=== PATIENT | male | born 1995 | race Hispanic/Latino ===

== ENCOUNTER 2017-09-01 22:22 | Emergency (ER) | payer OTHER, SELFPAY ==
[2017-09-01] MEDS ORDERED: Ibuprofen 200 MG TAB ONE (22:58)
[2017-09-01] MEDS ORDERED: Acetaminophen 500 MG TAB ONE (23:45)
[2017-09-01 23:59] LABS: Bilirubin Negative (Negative); Blood, Urine Negative (Negative); Clarity CLEAR (Clear); Glucose, Urine (Dipstick) Negative (Negative); Leukocyte Negative (Negative); Nitrite Negative (Negative); Protein, Urine (Dipstick) Negative (Neg-Trace); Specific Gravity, Urine 1.019 (1.002-1.036); pH, Urine 6.5 (5.0-9.0)
[2017-09-02] MEDS ORDERED: diphenhydrAMINE 50 MG/ML VIAL ONE (00:02)
[2017-09-02] MEDS ORDERED: Metoclopramide HCl 10 MG/2 ML VIAL ONE (00:02)
[2017-09-02 00:11] LABS: #Eosinphils 0.1 thou/uL (0.0-0.7); #Lymphocytes 0.7 thou/uL (1.20-3.40); #Monocytes 0.7 thou/uL (0.11-0.59); #Neutrophils 3.9 thou/uL (1.40-6.50); %Basophils 0.3 % (0.0-1.0); %Eosinophils 2.2 % (0.0-10.0); %Lymphocytes 13.6 % (28.0-48.0); %Monocytes 12.6 % (0.0-4.0); %Neutrophils 71.4 % (31.0-61.0); Hemoglobin 14.3 g/dL (14.0-18.0); Mean Corpuscular HGB CONC 33.2 g/dL (32.0-36.0); Mean Corpuscular Hemoglobin 31.1 pg (25.0-35.0); Mean Corpuscular Volume 93.8 fl (77.0-87.0); Mean Platelet Volume 9.2 fL (7.4-10.4); Platelet Count 178 thou/uL (130-400); RBC Distribution Width 10.7 % (11.5-14.5); Red Blood Cell (RBC) Count 4.61 mill/uL (4.00-5.20); White Blood Cell (WBC) Count 5.4 thou/uL (4.8-10.8)
--- NOTE | 2017-09-02 00:22 | RAD ---
CHEST TWO VIEWS: 09/01/17 HISTORY: Fever. Bodyaches. COMPARISON: None. FINDINGS: Normal cardiac silhouette. The lungs and pleural spaces are clear. No pneumothorax or osseous abnorma lity. IMPRESSION: No acute cardiopulmonary process. POS: H
[2017-09-02 00:26] LABS: ALT (SGPT) 17 U/L (8-55); AST (SGOT) 20 U/L (10-45); Albumin 4.2 g/dL (3.5-5.0); Alkaline Phosphatase 92 U/L (Less than 750); Anion Gap 12 mmol/L (10-20); BUN (Urea Nitrogen) 17 mg/dL (8.4-21.0); Bilirubin, Total 0.2 mg/dL (0.2-1.2); Calc. Creatinine Clearance 0 mL/min (70-130); Calcium 8.8 mg/dL (7.8-10.44); Carbon Dioxide 21 mmol/L (22-29); Chloride 107 mmol/L (98-107); Estimated GFR-MDRD 83; Globulin 2.9 g/dL (2.4-3.5); Glucose 102 mg/dL (70-105); Lipase 18 U/L (8-78); Potassium 3.5 mmol/L (3.5-5.1); Protein, Total 7.1 g/dL (6.0-8.3); Sodium 136 mmol/L (136-145)
== END 2017-09-02 00:41 | disposition home or self-care (01) ==
LOC: ERS 22:22
DX: B34.9 Viral infection, unspecified (principal); F17.210 Nicotine dependence, cigarettes, uncomplicated; Z71.6 Tobacco abuse counseling
CPT/HCPCS: 71046; 80053; 81003; 83605; 83690; 85025; 87081; 87430; 96365; 96375; 99406; J1200; J2765